=== PATIENT | male | born 1970 | race Caucasian/White ===

== ENCOUNTER 2020-03-17 13:49 | Inpatient (IN) | payer OTHER, SELFPAY ==
[2020-03-17] VITALS (21 sets, daily range): BP systolic 110–143; BP diastolic 62–85; PULSE 63–105; RESP 12–18; TEMP 35.9–36.6; O2SAT 94–100; BMI 23.5
[2020-03-17 14:44] LABS: Absolute Lymphocyte Count 1.78 X10^3/uL (0.83-4.51); Absolute Neutrophil Count 3.6 X10^3/uL (2.0-7.7); Basophil# 0.07 X10^3/uL; Basophil% 1.2 % (0-1); Eosinophil# 0.04 X10^3/uL; Eosinophils% 0.7 % (0-5); Lymphocyte # 1.78 X10^3/ul (4.0); Lymphocyte % 29.4 % (19-41); Mean Corp Hgb Conc 26.7 g/dL (32-36); Mean Corpuscular Hgb 15.5 pg (27.0-32.0); Mean Corpuscular Volume 58.1 fL (80-94); Mean Platelet Vol. 8.1 fl (6.2-12.0); Monocyte# 0.58 X10^3/uL; Monocyte% 9.6 % (0-10); NRBC Flagged by Analyzer 0.7 % (0-5); Neutrophil # 3.57 X10^3/uL (2.7-7.7); Neutrophil % 58.9 % (47-70); POSITIVE COUNT YES; Platelet Count 534 K/mm3 (150-450); RBC Distribution Width CV 16.6 % (11.6-14.6); RBC Distribution Width SD 34.4 fl (35.1-43.9); Red Blood Count 2.58 M/mm3 (4.6-6.2); White Blood Count 6.1 K/mm3 (4.4-11.0)
[2020-03-17 14:47] LABS: Differential Indicated SCAN CRITERIA MET
[2020-03-17 14:55] LABS: Anion Gap 7 (5-15); BUN 16 mg/dL (7-18); BUN/Creat Ratio 15.5 RATIO (10-20); Calcium,Total 8.6 mg/dL (8.5-10.1); Chloride 107 mmol/L (98-107); Creatinine, Serum 1.03 mg/dL (0.70-1.30); EST Glomerular Filtration Rate 82 mL/min (>60); Est Glom Filt Rate - Afr Amer 99 mL/min (>60); Estimated Creatinine Clearance 84.85 ml/min; Glucose 89 mg/dL (74-106); Iron 6 ug/dL (65-175); Iron Binding Capacity,Total 549 ug/dL (250-450); PERCENT IRON SATURATION 1.1 % (15.0-55.0); Potassium 3.7 mmol/L (3.5-5.1); Sodium Level 140 mmol/L (136-145)
[2020-03-17 15:03] LABS: Partial Thromboplast Time 28.8 Seconds (24.1-36.2)
[2020-03-17 15:31] LABS: International Normalized Ratio 1.3; Prothrombin Time (Protime)PT. 15.8 SECONDS (11.7-14.9)
--- NOTE | 2020-03-17 15:32 | NURSING ---
DR MARTIN FOR DR SOTO
--- NOTE | 2020-03-17 15:47 | ED.VIS.GEN ---
History of Present Illness Chief Complaint: Abn Labs Narrative: Patient presenting for evaluation secondary to anemia. Patient reports that he has a history of hemorrhoids. He has had this for quite a long time, they are typically not painful but over the course of about the last month he reports that he has been having increased issues with bleeding. Patient states that every time he has a bowel movement his hemorrhoids or prolapse, he will have a large amount of blood in the toilet, he will manually reduce them and then go about his day. He states that he progressively has been getting more shortness of breath over the course of the last month. At the recommendation of his brother who is a physician he got outpatient labs that showed that he had a hemoglobin of 4 and low iron and he was recommended to come to the emergency department. Patient denies that he has been having any sort of fevers chills night sweats or unintended weight loss. Patient denies that he has any rectal pain or abdominal pain associated with this. Review of systems otherwise negative. Past Medical History - Allergies and Home Meds Allergies/Adverse Reactions: Allergies No Known Allergies Allergy (Verified 03/17/20 14:22) Primary Care Physician: Care Physician,No Primary [Primary Care Provider] - Past Medical History: None Smoking Status: Never smoker Alcohol: None Drugs: None Review of Systems All systems negative except as indicated General: Denies: Chills, Fever, Sweats Eyes: Denies: Visual changes - bilaterally, Diplopia ENT: Denies: Rhinorrhea, Sore throat Cardiovascular: Denies: Chest pain, Palpitations Respiratory: Reports: Dyspnea Gastrointestinal: Reports: Hematochezia Genitourinary: Denies: Dysuria, Hematuria, Frequency Musculoskeletal: Denies: Back pain, Extremity Pain Skin: Denies: Rash, Wounds Neurological: Denies: Headache, Weakness, Numbness Physical Exam Vital Signs/Narrative: Vital Signs Temp Pulse Resp BP Pulse Ox 03/17/20 13:50 96.7 F L 77 16 143/85 H 100 Inital Vital Signs reviewed: Yes General: Well nourished, Well developed, No Acute Distress Head: Normocephalic, Atraumatic Eyes: Perrl, EOMI, Pale conjunctiva ENT: Moist mucous membranes, No rhinorrhea Neck: Supple, Nontender Cardiovascular: Regular rate, Regular rhythm, No murmurs Respiratory: No distress, CTA bilaterally, Chest nontender Abdomen: Soft, Nontender, Nondistended, Normal bowel sounds Rectal: - - Rectal exam shows multiple nonthrombosed hemorrhoids with trace blood on digital exam, these are nontender. Back: Nontender, Normal Inspection Extremities: Nontender, No edema Skin: No rash, Pallor Neurological: Alert, Oriented x3, Cranial nerves II-XII grossly intact, Normal Strength, Normal Sensation Psychological: Normal affect, Normal Mood Diagnostic/Tx/Re-eval - Medical Decision Making Patient presented secondary to anemia. Physical exam he does appear anemic, this was confirmed via a CBC. Patient was typed and crossmatched for 2 units of packed red blood cells. Patient has only trace blood currently, is normotensive and not tachycardic. He does not appear critically ill and likely got to a hemoglobin of 4 slowly over a period of time. I discussed patient's case with general surgery who does agree to see the patient in consult for a colonoscopy which likely will be required to assess the source of his bleeding as this could either be from hemorrhoids, malignancy, or other etiology. I discussed this with hospitalist who would like to place the patient in intensive care due to the profoundly low hemoglobin of 4.0. Patient will be admitted for further treatment. - Critical Care Time Critical care time (excluding procedures): 30-74 minutes ED Disposition - Plan for ED Patient: Disposition: Acute Care Hospital [facility] Diagnosis: Anemia, Lower GI bleed Referrals: Care Physician,No Primary [Primary Care Provider] -
--- NOTE | 2020-03-17 15:48 | NURSING ---
ICU PAINTSIL GI BLEED
--- NOTE | 2020-03-17 16:10 | PCM.HP.STD ---
<Jessenia Davila [employer] - Last Filed: 03/17/20 16:20> Problem List (1) Anemia Status: Acute (2) Lower GI bleed Status: Acute History of Present Illness Date of Admission: 03/17/20 Chief Complaint: Shortness of breath, lightheadedness. The patient is a 49 year old M who presents to emergency room due to shortness of breath, lightheadedness and rectal bleeding. Patient states he has had hemorrhoids forever. He states his previously he had periods of time where he would have rectal bleeding which would then resolve on their own. Over the past few months he states he has had ongoing bleeding from his hemorrhoids. He states during a bowel movement he has squirting of blood. He has not seen a doctor for this or had prior colonoscopy. Over the past few weeks he reports shortness of breath and lightheadedness as well as easily fatigued. He called his brother who is a physician currently practicing in [facility] who told him to get lab work. Patient went to a laboratory to have his blood work completed and when he shared results with his brother, his brother told him to go to the emergency room immediately. He denies chest pain, denies syncope. He has a past medical history of hepatitis B which he states has resolved. Past Medical History Allergies No Known Allergies Allergy (Verified 03/17/20 14:22) Home Medications: Ambulatory Orders Medication Instructions Recorded Acetaminophen [Tylenol Extra 1,000 mg PO DAILY PRN 03/17/20 Strength] Naproxen Sodium 440 mg PO DAILY PRN 03/17/20 Surgical History: no surgical history Psychiatric History: No pertinent psych hx Lives: Spouse/ Significant Other Smoking Status: Never smoker Alcohol: Rare Drugs: None - *Family History Maternal History Items: - - Denies known maternal medical history including cardiac history Paternal History Items: Hypertension, Stroke - Brain aneurysm Review of Systems Constitutional: Reports: Fatigue. Denies: Chills, Fever, Weight Change HEENT: Denies: Head Aches, Sinus Congestion, Sinus Drainage Cardiovascular: Reports: Light Headedness. Denies: Chest Pain, Chest Pressure, Palpitations, Syncope Respiratory: Reports: Shortness of breath upon exertion. Denies: Cough, Sputum production, Wheezing Gastrointestinal: Reports: - - Rectal bleeding. Denies: Abdominal Pain, Nausea, Vomiting Genitourinary: Denies: Dysuria Musculoskeletal: Denies: Joint Pain, Joint Tenderness Skin: Denies: Rash, Wounds Neurological: Denies: Numbness, Tingling, Focal weakness Psychiatric: Denies: Anxiety, Depression, Homicidal Ideations, Suicidal Ideations Hematologic/ Lymphatic: Denies: Easy Bruising, Easy Bleeding VTE Information - Inpt Only VTE Present on Admission: No VTE Mechan Device Prophylaxis: None VTE Pharm Prophylaxis ordered?: No Reason prophylaxis not ordered:: Medical Contraindication Patient Problems: Active and Suspected Problems Anemia (Acute) Lower GI bleed (Acute) - Physical Exam Vitals/I&O's: Vital Signs Temp Pulse Resp BP Pulse Ox 97.9 F 77 14 125/72 H 100 03/17/20 15:56 03/17/20 15:56 03/17/20 15:56 03/17/20 15:56 03/17/20 15:56 Oxygen Delivery Method Room Air Weight: 154 lb 12.232 oz Body Mass Index (BMI) 23.5 Intake and Output for Last 24 Hours 03/15/20 03/16/20 03/17/20 23:59 23:59 23:59 Intake Total 0 / 0 Balance 0 / 0 General: Alert, Oriented x3, Cooperative, - - Very pale appearing HEENT: Atraumatic, PERRLA, EOMI, Normocephalic Neck: Supple, No JVD, Negative Carotid Bruits Lungs: Clear to auscultation, Normal air movement Cardiovascular: Regular rate, No murmurs Abdomen: Bowel Sounds Present, Soft, Non Tender, Non-Distended Extremities: No clubbing, No cyanosis, No edema, Capillary Refill Less than 3 Seconds Skin: No rashes, No breakdown Musculoskeletal: No Tenderness to Palpation of Joints or Extremities Neurological: Cranial nerves II-XII grossly intact, Neuro grossly intact Psych/Mental Status: Normal Affect, Appropriate Laboratory Results 03/17/20 14:30: WBC 6.1, RBC 2.58 L, Hgb 4.0 L*, Hct 15.0 L, MCV 58.1 L, MCH 15.5 L, MCHC 26.7 L, RDW Std Deviation 34.4 L, RDW Coeff of Laisha 16.6 H, Plt Count 534 H, MPV 8.1, Immature Gran % (Auto) 0.200, Neut % (Auto) 58.9, Lymph % (Auto) 29.4, [place] % (Auto) 9.6, Eos % (Auto) 0.7, Baso % (Auto) 1.2 H, Absolute Neuts (auto) 3.6, Absolute Lymphs (auto) 1.78, Nucleated RBC % 0.7, Diff Path Review August03/17/20 14:30: PT 15.8 H, INR 1.3, APTT 28.8 03/17/20 14:30: Sodium 140, Potassium 3.7, Chloride 107, Carbon Dioxide 26.0, Anion Gap 7, BUN 16, Creatinine 1.03, Estim Creat Clear Calc 84.85, Est GFR (MDRD) Af Amer 99, Est GFR (MDRD) Non-Af 82, BUN/Creatinine Ratio 15.5, Glucose 89, Calcium 8.6, Iron 6 L, TIBC 549 H, Iron Saturation 1.1 L 03/17/20 14:30: Blood Type A NEGATIVE, Antibody Screen NEGATIVE, Crossmatch See Detail Assessment/Plan All Active Problems Anemia (Acute) Lower GI bleed (Acute) 1. Acute severe symptomatic anemia, lower GI bleed-secondary to acute on chronic hemorrhoidal bleeding. Dr. Ricks, general surgery consulted. NPO. 2 units PRBC ordered in ER, serial H&H. PPI. 2. History of hepatitis B-patient reports this was followed as outpatient and resolved. DVT prophylaxis-pharmacologic prophylaxis contraindicated This patient was seen by DRAKE Pham under the supervision of Dr. Briceno. <Tsering Briceno - Last Filed: 03/17/20 16:49> History of Present Illness The patient is a 49 year old M [] Past Medical History Allergies No Known Allergies Allergy (Verified 03/17/20 14:22) - Physical Exam Vitals/I&O's: Vital Signs Temp Pulse Resp BP Pulse Ox 97.9 F 75 12 137/76 H 100 03/17/20 16:21 03/17/20 16:21 03/17/20 16:21 03/17/20 16:21 03/17/20 16:21 Oxygen Delivery Method Room Air Weight: 70.2 kg Body Mass Index (BMI) 23.5 Intake and Output for Last 24 Hours 03/15/20 03/16/20 03/17/20 23:59 23:59 23:59 Intake Total 0 / 0 Balance 0 / 0 Laboratory Results 03/17/20 14:30: WBC 6.1, RBC 2.58 L, Hgb 4.0 L*, Hct 15.0 L, MCV 58.1 L, MCH 15.5 L, MCHC 26.7 L, RDW Std Deviation 34.4 L, RDW Coeff of Laisha 16.6 H, Plt Count 534 H, MPV 8.1, Immature Gran % (Auto) 0.200, Neut % (Auto) 58.9, Lymph % (Auto) 29.4, [place] % (Auto) 9.6, Eos % (Auto) 0.7, Baso % (Auto) 1.2 H, Absolute Neuts (auto) 3.6, Absolute Lymphs (auto) 1.78, Nucleated RBC % 0.7, Diff Path Review August03/17/20 14:30: PT 15.8 H, INR 1.3, APTT 28.8 03/17/20 14:30: Sodium 140, Potassium 3.7, Chloride 107, Carbon Dioxide 26.0, Anion Gap 7, BUN 16, Creatinine 1.03, Estim Creat Clear Calc 84.85, Est GFR (MDRD) Af Amer 99, Est GFR (MDRD) Non-Af 82, BUN/Creatinine Ratio 15.5, Glucose 89, Calcium 8.6, Iron 6 L, TIBC 549 H, Iron Saturation 1.1 L 03/17/20 14:30: Blood Type A NEGATIVE, Antibody Screen NEGATIVE, Crossmatch See Detail Assessment/Plan This patient was seen in conjunction with Jessenia Davila NP. I have independently interviewed and examined the patient and reviewed pertinent historical, laboratory, and other data. Please refer to her note for patient's presentation, findings, and recommendations. 49-year-old male with past medical history of hemorrhoids who has been having rectal bleeding for months, never had a colonoscopy comes in with dizziness, palpitations, lightheadedness and presyncopal symptoms. He got outpatient lab which showed hemoglobin of 4. He was directed to come to emergency department. At the time of being seen, he denied any chest pain or shortness of breath. He was currently pain transfused. Rectal exam diameter emergency room doctor showed streaks of blood, prolapsed hemorrhoid. Vitals are stable. Physical Exam: Gen: Comfortable, very pale, not jaundiced, alert oriented x3 CVS:HS I +II, regular, no murmurs RESP: CTA GI: BS present and normal, nontender, no palpable organs, rectal exam was deferred because it was previously done by ED doctor. EXT:No edema Labs reviewed: ASSESSMENT: 1. Acute severe chronic blood loss anemia 2. Acute GI bleed, likely secondary to acute bleeding hemorrhoids 3. History of Hep B 4. DVT PPx-SCDs 5. Code status - Full code Meds reviewed Plan: Admit to ICU Transfuse 2 units of pRBCs IV PPI BID HH Q6h I discussed and explained in details the various types of CODE STATUS-full code, DNR CCA, DNR CC. Patient opted for full code. Time spent discussing CODE STATUS 16 minutes Inpatient E&M: 62823 Init Hosp L3 Procedures: 43423 Advncd Care Plan 30 Min
--- NOTE | 2020-03-17 16:19 | NURSING ---
ICU 5
[2020-03-17] MEDS: Furosemide 20 MG/2 ML VIAL IV (19:35)
[2020-03-17] MEDS: 0.9% Saline Lock 10 ML Syringe IV ×2 (19:35→23:30)
[2020-03-17 19:41] LABS: AST(SGOT) 12 U/L (15-37); Alanine Aminotransfer ALT/SGPT 19 U/L (16-61); Albumin, Serum 4.3 g/dL (3.2-5.0); Alkaline Phosphatase 55 U/L (45-117); Bilirubin, Direct 0.11 mg/dL (0.00-0.30); Globulin 3.5 g/dL (2.2-4.2); Protein, Total 7.8 g/dL (6.4-8.2)
[2020-03-17 22:26] LABS: Hematocrit 20.6 % (40-54); POSITIVE COUNT YES
[2020-03-17 22:30] LABS: Hemoglobin 5.9 g/dL (13.0-16.5)
[2020-03-18] VITALS (28 sets, daily range): BP systolic 94–133; BP diastolic 55–88; PULSE 49–88; RESP 12–18; TEMP 36.3–37.1; O2SAT 95–100
[2020-03-18] MEDS: 0.9% Saline Lock 10 ML Syringe IV (06:01)
[2020-03-18 06:09] LABS: Absolute Lymphocyte Count 1.82 X10^3/uL (0.83-4.51); Absolute Neutrophil Count 3.4 X10^3/uL (2.0-7.7); Basophil# 0.06 X10^3/uL; Eosinophil# 0.13 X10^3/uL; Eosinophils% 2.1 % (0-5); Hemoglobin 7.4 g/dL (13.0-16.5); Lymphocyte # 1.82 X10^3/ul (4.0); Lymphocyte % 29.5 % (19-41); Mean Corp Hgb Conc 30.8 g/dL (32-36); Mean Corpuscular Hgb 20.8 pg (27.0-32.0); Mean Corpuscular Volume 67.4 fL (80-94); Mean Platelet Vol. 8.3 fl (6.2-12.0); Monocyte# 0.76 X10^3/uL; Monocyte% 12.3 % (0-10); NRBC Flagged by Analyzer 0.6 % (0-5); Neutrophil # 3.38 X10^3/uL (2.7-7.7); Neutrophil % 54.8 % (47-70); POSITIVE MORPHOLOGY YES; Platelet Count 456 K/mm3 (150-450); RBC Distribution Width CV 26.5 % (11.6-14.6); RBC Distribution Width SD 59.1 fl (35.1-43.9); Red Blood Count 3.56 M/mm3 (4.6-6.2); White Blood Count 6.2 K/mm3 (4.4-11.0)
[2020-03-18 06:13] LABS: Differential Indicated SCAN CRITERIA MET
[2020-03-18 06:24] LABS: Differential Comment SCANNED
[2020-03-18 06:25] LABS: Anisocytosis 1+; Hypochromasia 2+; Microcytosis 1+; Tear Drop Cell RARE
[2020-03-18 06:26] LABS: Ovalocyte RARE
[2020-03-18 06:29] LABS: ALB/GLOB Ratio 1.1 RATIO (0.9-2.4); AST(SGOT) 12 U/L (15-37); Alanine Aminotransfer ALT/SGPT 19 U/L (16-61); Albumin, Serum 3.7 g/dL (3.2-5.0); Alkaline Phosphatase 51 U/L (45-117); Anion Gap 5 (5-15); BUN 16 mg/dL (7-18); BUN/Creat Ratio 14.5 RATIO (10-20); Calcium,Total 8.5 mg/dL (8.5-10.1); Chloride 107 mmol/L (98-107); EST Glomerular Filtration Rate 76 mL/min (>60); Est Glom Filt Rate - Afr Amer 92 mL/min (>60); Estimated Creatinine Clearance 79.45 ml/min; Globulin 3.3 g/dL (2.2-4.2); Glucose 83 mg/dL (74-106); Potassium 3.9 mmol/L (3.5-5.1); Sodium Level 138 mmol/L (136-145)
--- NOTE | 2020-03-18 08:18 | CON.PCM_ITS ---
Problem List (1) Hemorrhoids with complication Status: Acute (2) Iron deficiency anemia due to chronic blood loss Status: Chronic (3) Lower GI bleed Status: Acute Reason for Consult Date of Consultation: 03/18/20 Reason for Consultation: GI bleed History of Present Illness: The patient is a 49 year old M, with past medical history listed below, who presented to [facility] on 03/17/2020 secondary to weakness. Patient reportedly has a history of hemorrhoids and has had increased bleeding over the last 2 to 3 months. Patient states that when he had a bowel movement he could hear a large amount of blood hitting the toilet bowl. Patient reportedly would manually reduce them and go on with his day. Patient became progressively weak and had an outpatient labs showing a hemoglobin of 4, so was brought to the emergency department for evaluation. Patient was not reporting any concomitant symptoms such as fever, chills, night sweats or unintentional weight loss. Patient is not having any rectal pain, abdominal pain, nausea or vomiting. Patient is not reporting any respiratory symptoms or chest pain. On arrival to the ER, patient was noted to be normotensive at 143/85 and saturating well on room air. Patient was very pale in appearance. Rectal exam did show multiple nonthrombosed hemorrhoids. Patient was typed and crossed 2 units and transfused. Patient was placed in the intensive care unit for monitoring. Surgery was reportedly contacted by the ER. Since being in the intensive care unit, patient has received an additional 2 units of packed red blood cells to reach a total of 4 units of packed red blood cells. Patient has not been hemodynamically unstable. Patient is not reporting any abdominal pain, nausea or vomiting. No new symptoms have been reported. Patient reports only intermittent alcohol use with no tobacco or drug use. Patient denies any environmental exposures. Patient does report that he does not have a primary care physician. Review of systems otherwise negative from a constitutional, HEENT, respiratory, cardiovascular, GI, genitourinary, musculoskeletal, skin, neurologic, psychiatric and hematologic system unless stated above. Past Medical History Past Medical History (Chronic Problems): Chronic Problems Iron deficiency anemia due to chronic blood loss (Chronic) Allergies No Known Allergies Allergy (Verified 03/17/20 14:22) Home Medications: Ambulatory Orders Medication Instructions Recorded Acetaminophen [Tylenol Extra 1,000 mg PO DAILY PRN 03/17/20 Strength] Naproxen Sodium 440 mg PO DAILY PRN 03/17/20 Surgical History: no surgical history Psychiatric History: No pertinent psych hx Lives: Spouse/ Significant Other Smoking Status: Never smoker Tobacco Use: Non-smoker Alcohol: Rare Drugs: None - *Family History Maternal History Items: - - Denies known maternal medical history including cardiac history Paternal History Items: Hypertension, Stroke - Brain aneurysm Review of Systems Comment: See HPI Patient Problems: Active and Suspected Problems Anemia (Acute) Lower GI bleed (Acute) - Physical Exam Vitals/I&O's: Vital Signs Temp Pulse Resp BP Pulse Ox 36.4 C L 64 16 122/72 H 100 03/18/20 07:00 03/18/20 08:00 03/18/20 08:00 03/18/20 08:00 03/18/20 08:00 Oxygen Delivery Method Room Air Weight: 71.4 kg Body Mass Index (BMI) 23.5 Intake and Output for Last 24 Hours 03/16/20 03/17/20 03/18/20 23:59 23:59 23:59 Intake Total 170.25 / 170.25 90 / 90 Output Total 2200 / 2200 250 / 250 Balance -2029.75 / -2029.75 -160 / -160 General: Alert, Oriented x3, Cooperative, No apparent distress, Well developed, Well nourished, - - Speaking in full sentences. HEENT: Atraumatic, PERRLA, EOMI, Normocephalic, - - No scleral icterus or injection noted Oral: Moist Mucosa, No Gingival or Mucosal Lesions/ Ulcerations Neck: Supple, No JVD, No Nodes, Trachea Midline Lungs: Clear to auscultation, Normal air movement, No rhonchi, No wheeze, No rales Cardiovascular: Regular rate, Regular Rhythm, Normal S1, Normal S2, No murmurs, No rub noted, No Gallop Abdomen: Bowel Sounds Present, Soft, Non Tender, Non-Distended Extremities: No clubbing, No cyanosis, No edema Skin: No rashes, No breakdown Musculoskeletal: No Tenderness to Palpation of Joints or Extremities Lymphatic: No Cervical, Supraclavicular, or Inguinal Adenopathy Neurological: Cranial nerves II-XII grossly intact, Neuro grossly intact, Motor Exam 5/5 strength throughout Psych/Mental Status: Alert and oriented to time, place, person, mood and affect Microbiology Past 72 Hours 03/17/20 19:20 Mucosa - Nose SARS-CoV-2 Antigen (Rapid) - Final Laboratory Results 03/17/20 14:30: WBC 6.1, RBC 2.58 L, Hgb 4.0 L*, Hct 15.0 L, MCV 58.1 L, MCH 15.5 L, MCHC 26.7 L, RDW Std Deviation 34.4 L, RDW Coeff of Laisha 16.6 H, Plt Count 534 H, MPV 8.1, Immature Gran % (Auto) 0.200, Neut % (Auto) 58.9, Lymph % (Auto) 29.4, [place] % (Auto) 9.6, Eos % (Auto) 0.7, Baso % (Auto) 1.2 H, Absolute Neuts (auto) 3.6, Absolute Lymphs (auto) 1.78, Nucleated RBC % 0.7, Diff Path Review August03/17/20 14:30: PT 15.8 H, INR 1.3, APTT 28.8 03/17/20 14:30: Sodium 140, Potassium 3.7, Chloride 107, Carbon Dioxide 26.0, Anion Gap 7, BUN 16, Creatinine 1.03, Estim Creat Clear Calc 84.85, Est GFR (MDRD) Af Amer 99, Est GFR (MDRD) Non-Af 82, BUN/Creatinine Ratio 15.5, Glucose 89, Calcium 8.6, Iron 6 L, TIBC 549 H, Iron Saturation 1.1 L 03/17/20 14:30: Blood Type A NEGATIVE, Antibody Screen NEGATIVE, Crossmatch See Detail 03/17/20 14:30: Total Bilirubin 0.40, Direct Bilirubin 0.11, AST 12 L, ALT 19, Alkaline Phosphatase 55, Total Protein 7.8, Albumin 4.3, Globulin 3.5 03/17/20 14:30: Crossmatch See Detail 03/17/20 22:17: Hgb 5.9 L*, Hct 20.6 L 03/18/20 05:58: WBC 6.2, RBC 3.56 L, Hgb 7.4 L, Hct 24.0 L, MCV 67.4 L D, MCH 20.8 L, MCHC 30.8 L D, RDW Std Deviation 59.1 H, RDW Coeff of Laisha 26.5 H, Plt Count 456 H, MPV 8.3, Immature Gran % (Auto) 0.300, Neut % (Auto) 54.8, Lymph % (Auto) 29.5, [place] % (Auto) 12.3 H, Eos % (Auto) 2.1, Baso % (Auto) 1.0, Absolute Neuts (auto) 3.4, Absolute Lymphs (auto) 1.82, Nucleated RBC % 0.6, Differential Comment SCANNED, Hypochromasia 2+, Anisocytosis 1+, Microcytosis 1+, Tear Drop Cells RARE, Ovalocytes RARE 03/18/20 05:58: Sodium 138, Potassium 3.9, Chloride 107, Carbon Dioxide 26.0, Anion Gap 5, BUN 16, Creatinine 1.10, Estim Creat Clear Calc 79.45, Est GFR (MDRD) Af Amer 92, Est GFR (MDRD) Non-Af 76, BUN/Creatinine Ratio 14.5, Glucose 83, Calcium 8.5, Total Bilirubin 1.50 H, AST 12 L, ALT 19, Alkaline Phosphatase 51, Total Protein 7.0, Albumin 3.7, Globulin 3.3, Albumin/Globulin Ratio 1.1 Current Medications Acetaminophen (Acetaminophen 325 Mg Tablet) 650 mg PO Q6H PRN PRN PRN Reason: Pain Score 1-10/Temp > 100.7 F Pantoprazole Sodium 40 mg/ (Sodium Chloride) 110 mls @ 330 mls/hr IV Q12 LUZ ELENA Last Infusion: 03/17/20 21:49 Dose: Infused Documented by: Sodium Chloride () 250 mls @ 15 mls/hr IV .[id number] PRN PRN Reason: Saline Flush Last Infusion: 03/17/20 21:22 Dose: 0 mls/hr Documented by: Sodium Chloride () 250 mls @ 15 mls/hr IV .[id number] PRN PRN Reason: Additional IVPB Infusion Ondansetron HCl (Ondansetron 4 Mg/2 Ml Vial) 4 mg IV Q8H PRN PRN PRN Reason: NAUSEA/VOMITING Polyethylene Glycol (Polyethylene Glycol 3350 17 Gm Packet) 17 gm PO DAILY LUZ ELENA Sodium Chloride (0.9% Saline Lock 10 Ml Syringe) 10 - 40 ml IV UD PRN PRN Reason: SALINE FLUSH Last Admin: 03/18/20 06:01 Dose: 10 ml Documented by: Assessment/Plan Active and Suspected Problems Anemia (Acute) Lower GI bleed (Acute) RECOMMENDATIONS: 1. Await surgical recommendations 2. Initiate bowel regimen 3. No transfusion of blood 4. Consider iron infusion 5. Okay to leave the intensive care unit from my perspective IMPRESSIONS: 1. Acute on chronic blood loss anemia secondary to bleeding hemorrhoids Surgery has been consulted. Patient has responded well to transfusions. Likely not necessary to transfuse up to a hemoglobin of 9 as bleeding should be readily noticeable from the rectal position. Patient does have significant iron deficiency with a saturation of just over 1%. Patient may benefit from iron infusion. Patient will be placed on a laxative to limit potential tearing and complication of continued bleeding. No indication for pressors or IV fluids from my perspective. 2. Iron deficiency anemia secondary to acute blood loss/internal hemorrhoids/lack of primary care Complicates care, management, recovery and prognosis. Patient will need p.o. supplementation, but may benefit from an iron infusion to help stabilize condition. Will discuss with case management about initiation of referral for primary care. Inpatient E&M: 47817 Init Hosp L2
--- NOTE | 2020-03-18 09:18 | PCM.CONS.GEN ---
Problem List (1) Anemia Status: Acute (2) Lower GI bleed Status: Acute (3) Hemorrhoids with complication Status: Acute Reason for Consult Date of Consultation: 03/18/20 Reason for Consultation: Acute lower GI bleed. Acute Anemia. History of Present Illness: The patient is a 49 year old M who presented following lab results of Hgb of 4. Patient states he has a long time history of hemorrhoids. He notes within the last 2 months he has had increased rectal bleeding with bowel movements. Patient states within the last 3-4 weeks he has noted increased fatigue. He started working out again after stopping for awhile thinking this may help. He continued to notice easy fatigue. Patient states 2 weeks ago he had noticed increased shortness of breath. He also noted his heart would beat faster than normal. His tongue and gums were pale. He contacted his brother who is a physician in [facility] who recommended the patient obtain lab work. His lab work returned and patients brother had recommended the patient to the ED. Patient has a history of constipation also. He noted recently changing his diet to include more iron. He noted diet change increased loose stools. He stated the last 2 days however have been constipation. He notes the last episode of bleeding was 3-4 days ago. He denies previous colonoscopy or EGD. He denies family history of colon cancer. Upon admission, Hgb was 4.0. He has received 4 units of PRBC. Hgb today is 7.4. He has not had any further bleeding. Past Medical History Past Medical History (Chronic Problems): Chronic Problems Iron deficiency anemia due to chronic blood loss (Chronic) Allergies No Known Allergies Allergy (Verified 03/17/20 14:22) Home Medications: Ambulatory Orders Medication Instructions Recorded Acetaminophen [Tylenol Extra 1,000 mg PO DAILY PRN 03/17/20 Strength] Naproxen Sodium 440 mg PO DAILY PRN 03/17/20 Surgical History: no surgical history Psychiatric History: No pertinent psych hx Lives: Spouse/ Significant Other Smoking Status: Never smoker Tobacco Use: Non-smoker Alcohol: Rare Drugs: None - *Family History Maternal History Items: - - Denies known maternal medical history including cardiac history Paternal History Items: Hypertension, Stroke - Brain aneurysm Review of Systems Constitutional: Reports: Fatigue HEENT: Denies: Head Aches, Sinus Congestion, Sinus Drainage Cardiovascular: Reports: Palpitations. Denies: Chest Pain Respiratory: Reports: Shortness of Breath Gastrointestinal: Reports: Constipation, Hematochezia. Denies: Abdominal Pain Genitourinary: Denies: Dysuria Musculoskeletal: Denies: Joint Pain, Joint Tenderness Skin: Denies: Rash, Wounds Neurological: Denies: Numbness, Tingling, Focal weakness Psychiatric: Denies: Anxiety, Depression, Homicidal Ideations, Suicidal Ideations Hematologic/ Lymphatic: Reports: Anemia Patient Problems: Active and Suspected Problems Anemia (Acute) Lower GI bleed (Acute) Hemorrhoids with complication (Acute) - Physical Exam Vitals/I&O's: Vital Signs Temp Pulse Resp BP Pulse Ox 97.6 F L 58 L 14 113/72 99 03/18/20 07:00 03/18/20 09:16 03/18/20 09:00 03/18/20 09:00 03/18/20 09:00 Oxygen Delivery Method Room Air Weight: 157 lb 6.561 oz Body Mass Index (BMI) 23.5 Intake and Output for Last 24 Hours 03/16/20 03/17/20 03/18/20 23:59 23:59 23:59 Intake Total 170.25 / 170.25 90 / 90 Output Total 2200 / 2200 250 / 250 Balance -2029.75 / -2029.75 -160 / -160 General: Alert, Oriented x3, Cooperative HEENT: Atraumatic, PERRLA, EOMI, Normocephalic Neck: Supple, No JVD, Negative Carotid Bruits Lungs: Clear to auscultation, Normal air movement Cardiovascular: Regular rate, No murmurs Abdomen: Bowel Sounds Present, Soft, Non Tender, - - Prolapsing internal hemorrhoids noted. No active bleeding noted. Extremities: No edema, Capillary Refill Less than 3 Seconds Skin: No rashes, No breakdown Musculoskeletal: No Tenderness to Palpation of Joints or Extremities Neurological: Neuro grossly intact Psych/Mental Status: Normal Affect, Appropriate Microbiology Past 72 Hours 03/17/20 19:20 Mucosa - Nose SARS-CoV-2 Antigen (Rapid) - Final Laboratory Results 03/17/20 14:30: WBC 6.1, RBC 2.58 L, Hgb 4.0 L*, Hct 15.0 L, MCV 58.1 L, MCH 15.5 L, MCHC 26.7 L, RDW Std Deviation 34.4 L, RDW Coeff of Laisha 16.6 H, Plt Count 534 H, MPV 8.1, Immature Gran % (Auto) 0.200, Neut % (Auto) 58.9, Lymph % (Auto) 29.4, [place] % (Auto) 9.6, Eos % (Auto) 0.7, Baso % (Auto) 1.2 H, Absolute Neuts (auto) 3.6, Absolute Lymphs (auto) 1.78, Nucleated RBC % 0.7, Diff Path Review August03/17/20 14:30: PT 15.8 H, INR 1.3, APTT 28.8 03/17/20 14:30: Sodium 140, Potassium 3.7, Chloride 107, Carbon Dioxide 26.0, Anion Gap 7, BUN 16, Creatinine 1.03, Estim Creat Clear Calc 84.85, Est GFR (MDRD) Af Amer 99, Est GFR (MDRD) Non-Af 82, BUN/Creatinine Ratio 15.5, Glucose 89, Calcium 8.6, Iron 6 L, TIBC 549 H, Iron Saturation 1.1 L 03/17/20 14:30: Blood Type A NEGATIVE, Antibody Screen NEGATIVE, Crossmatch See Detail 03/17/20 14:30: Total Bilirubin 0.40, Direct Bilirubin 0.11, AST 12 L, ALT 19, Alkaline Phosphatase 55, Total Protein 7.8, Albumin 4.3, Globulin 3.5 03/17/20 14:30: Crossmatch See Detail 03/17/20 22:17: Hgb 5.9 L*, Hct 20.6 L 03/18/20 05:58: WBC 6.2, RBC 3.56 L, Hgb 7.4 L, Hct 24.0 L, MCV 67.4 L D, MCH 20.8 L, MCHC 30.8 L D, RDW Std Deviation 59.1 H, RDW Coeff of Laisha 26.5 H, Plt Count 456 H, MPV 8.3, Immature Gran % (Auto) 0.300, Neut % (Auto) 54.8, Lymph % (Auto) 29.5, [place] % (Auto) 12.3 H, Eos % (Auto) 2.1, Baso % (Auto) 1.0, Absolute Neuts (auto) 3.4, Absolute Lymphs (auto) 1.82, Nucleated RBC % 0.6, Differential Comment SCANNED, Hypochromasia 2+, Anisocytosis 1+, Microcytosis 1+, Tear Drop Cells RARE, Ovalocytes RARE 03/18/20 05:58: Sodium 138, Potassium 3.9, Chloride 107, Carbon Dioxide 26.0, Anion Gap 5, BUN 16, Creatinine 1.10, Estim Creat Clear Calc 79.45, Est GFR (MDRD) Af Amer 92, Est GFR (MDRD) Non-Af 76, BUN/Creatinine Ratio 14.5, Glucose 83, Calcium 8.5, Total Bilirubin 1.50 H, AST 12 L, ALT 19, Alkaline Phosphatase 51, Total Protein 7.0, Albumin 3.7, Globulin 3.3, Albumin/Globulin Ratio 1.1 Current Medications Acetaminophen (Acetaminophen 325 Mg Tablet) 650 mg PO Q6H PRN PRN PRN Reason: Pain Score 1-10/Temp > 100.7 F Pantoprazole Sodium 40 mg/ (Sodium Chloride) 110 mls @ 330 mls/hr IV Q12 LUZ ELENA Last Infusion: 03/17/20 21:49 Dose: Infused Documented by: Sodium Chloride () 250 mls @ 15 mls/hr IV .[id number] PRN PRN Reason: Saline Flush Last Infusion: 03/17/20 21:22 Dose: 0 mls/hr Documented by: Sodium Chloride () 250 mls @ 15 mls/hr IV .[id number] PRN PRN Reason: Additional IVPB Infusion Ondansetron HCl (Ondansetron 4 Mg/2 Ml Vial) 4 mg IV Q8H PRN PRN PRN Reason: NAUSEA/VOMITING Polyethylene Glycol (Polyethylene Glycol 3350 17 Gm Packet) 17 gm PO DAILY LUZ ELENA Sodium Chloride (0.9% Saline Lock 10 Ml Syringe) 10 - 40 ml IV UD PRN PRN Reason: SALINE FLUSH Last Admin: 03/18/20 06:01 Dose: 10 ml Documented by: Assessment/Plan All Active Problems Anemia (Acute) Lower GI bleed (Acute) Hemorrhoids with complication (Acute) I have been consulted in conjunction with Dr. Ricks. Impression: Acute anemia. Lower GI bleed. Plan: I have discussed this patient with Dr. iRcks. Dr. Ricks will plan to perform an upper and lower endoscopy. Procedure details, risks and benefits have been explained. Patient has had the opportunity to ask and have questions answered. Patient verbally understands and agrees with the plan. Patient will be COVID tested prior to procedure. We will plan to proceed with the procedure tomorrow. Bowel prep has been explained to the patient. Discussed with patient performing hemorrhoidal surgery is typically non-emergent surgery with that being said a hemorrhoidectomy will more than likely be performed as an outpatient at patients choice of timing. Thank you for allowing us to participate in this patient's care. Office Visits / Consults: [id number] IP Consult L3
[2020-03-18] MEDS: Polyethylene Glycol 3350 17 GM PACKET PO (09:54)
--- NOTE | 2020-03-18 12:09 | NURSING ---
RN CM Assessment Introduced role of RN CM to patient.? Patient is alert, oriented and able?to participate in RN CM Assessment. ?Care providers, pharmacy, and demographics verified. Admit Dx: Severe Anemia, GIB Re-Admit: No Barriers/Issues: Patient states newly hired at [employer] and missed the insurance cut off so he is currently uninsured. This technical writer gave patient PCP list, information to [facility], and [facility] number- discussed checking into seeing if he qualifies and apply. PCP: None Specialists: None Preferred Pharmacy: [facility] Insurance: None Rx Benefit:?None ?LNOK: Spouse Sofiya Iyer LW/HPOA: None, patient declines completion at this time on admission. Aware can return as an outpatient to complete with social work department. Aware to notify staff if he changes his mind about completing during this admission. Living Arrangements:? Lives with spouse in a Duplex, 1 step to enter home. ADL?s: Independent with ambulation and ADL's Transportation: Both patient and spouse drive. Spouse will transport upon DC. DME: None HHC: None SNF: None Goal: Home and does not think will have any needs. Denies any issues or concerns with DC planning at this time. Aware RNCM will continue to follow for any emerging needs. DC PLAN: Home with no anticipated needs identified at this time. SULLY Oakes
[2020-03-18 13:39] LABS: Pathologist Review Reviewed
[2020-03-18] MEDS: Bisacodyl 5 MG Tablet 20 MG PO (14:53)
--- NOTE | 2020-03-18 15:06 | PCM.PN.HOSP ---
Patient Problems: Active and Suspected Problems Anemia (Acute) Lower GI bleed (Acute) Hemorrhoids with complication (Acute) Subjective: Feels better today after his transfusions. He presented with a hemoglobin of 4 and received 4 units PRBCs and his hemoglobin this morning was 7.4. Vitals/I&O's: Vital Signs Temp Pulse Resp BP Pulse Ox 97.4 F L 82 14 94/66 100 03/18/20 12:00 03/18/20 14:00 03/18/20 14:00 03/18/20 14:00 03/18/20 14:00 Oxygen Delivery Method Room Air Weight: 157 lb 6.561 oz Body Mass Index (BMI) 23.5 Intake and Output for Last 24 Hours 03/16/20 03/17/20 03/18/20 23:59 23:59 23:59 Intake Total 170.25 / 170.25 200 / 200 Output Total 2200 / 2200 575 / 575 Balance -2029.75 / -2029.75 -375 / -375 General: Alert, Oriented x3, Cooperative, No apparent distress, - - Pale HEENT: Atraumatic, PERRLA, EOMI, Normocephalic Oral: Moist Mucosa Neck: Supple, No JVD Lungs: Clear to auscultation, Normal air movement, No rhonchi, No wheeze, No rales Cardiovascular: Regular rate, Regular Rhythm, Normal S1, Normal S2, No murmurs Abdomen: Soft, Non Tender, Non-Distended, No Hepato-splenomegaly Extremities: No edema, Capillary Refill Less than 3 Seconds Skin: No rashes, No breakdown Neurological: Neuro grossly intact, Sensory exam intact to light touch and pain Psych/Mental Status: Normal Affect, Appropriate Microbiology Past 72 Hours 03/17/20 19:20 Mucosa - Nose SARS-CoV-2 Antigen (Rapid) - Final Laboratory Results 03/17/20 14:30: WBC 6.1, RBC 2.58 L, Hgb 4.0 L*, Hct 15.0 L, MCV 58.1 L, MCH 15.5 L, MCHC 26.7 L, RDW Std Deviation 34.4 L, RDW Coeff of Laisha 16.6 H, Plt Count 534 H, MPV 8.1, Immature Gran % (Auto) 0.200, Neut % (Auto) 58.9, Lymph % (Auto) 29.4, [place] % (Auto) 9.6, Eos % (Auto) 0.7, Baso % (Auto) 1.2 H, Absolute Neuts (auto) 3.6, Absolute Lymphs (auto) 1.78, Nucleated RBC % 0.7, Diff Path Review Reviewed 03/17/20 14:30: PT 15.8 H, INR 1.3 03/17/20 14:30: Blood Type A NEGATIVE, Antibody Screen NEGATIVE, Crossmatch See Detail 03/17/20 14:30: Total Bilirubin 0.40, Direct Bilirubin 0.11, AST 12 L, ALT 19, Alkaline Phosphatase 55, Total Protein 7.8, Albumin 4.3, Globulin 3.5 03/17/20 14:30: Crossmatch See Detail 03/17/20 22:17: Hgb 5.9 L*, Hct 20.6 L 03/18/20 05:58: WBC 6.2, RBC 3.56 L, Hgb 7.4 L, Hct 24.0 L, MCV 67.4 L D, MCH 20.8 L, MCHC 30.8 L D, RDW Std Deviation 59.1 H, RDW Coeff of Laisha 26.5 H, Plt Count 456 H, MPV 8.3, Immature Gran % (Auto) 0.300, Neut % (Auto) 54.8, Lymph % (Auto) 29.5, [place] % (Auto) 12.3 H, Eos % (Auto) 2.1, Baso % (Auto) 1.0, Absolute Neuts (auto) 3.4, Absolute Lymphs (auto) 1.82, Nucleated RBC % 0.6, Differential Comment SCANNED, Hypochromasia 2+, Anisocytosis 1+, Microcytosis 1+, Tear Drop Cells RARE, Ovalocytes RARE 03/18/20 05:58: Sodium 138, Potassium 3.9, Chloride 107, Carbon Dioxide 26.0, Anion Gap 5, BUN 16, Creatinine 1.10, Estim Creat Clear Calc 79.45, Est GFR (MDRD) Af Amer 92, Est GFR (MDRD) Non-Af 76, BUN/Creatinine Ratio 14.5, Glucose 83, Calcium 8.5, Total Bilirubin 1.50 H, AST 12 L, ALT 19, Alkaline Phosphatase 51, Total Protein 7.0, Albumin 3.7, Globulin 3.3, Albumin/Globulin Ratio 1.1 Current Medications Acetaminophen (Acetaminophen 325 Mg Tablet) 650 mg PO Q6H PRN PRN PRN Reason: Pain Score 1-10/Temp > 100.7 F Pantoprazole Sodium 40 mg/ (Sodium Chloride) 110 mls @ 330 mls/hr IV Q12 LUZ ELENA Last Infusion: 03/18/20 10:56 Dose: Infused Documented by: Sodium Chloride () 250 mls @ 15 mls/hr IV .[id number] PRN PRN Reason: Saline Flush Last Infusion: 03/18/20 09:54 Dose: Infused Documented by: Sodium Chloride () 250 mls @ 15 mls/hr IV .[id number] PRN PRN Reason: Additional IVPB Infusion Ondansetron HCl (Ondansetron 4 Mg/2 Ml Vial) 4 mg IV Q8H PRN PRN PRN Reason: NAUSEA/VOMITING Polyethylene Glycol (Polyethylene Glycol 3350 17 Gm Packet) 17 gm PO DAILY LZU ELENA Last Admin: 03/18/20 09:54 Dose: 17 gm Documented by: Polyethylene Glycol (Polyethylene Glycol 3350 Bowel Prep) 0 bottle PO DAILY@1600 ONE Stop: 03/18/20 16:01 Sodium Chloride (0.9% Saline Lock 10 Ml Syringe) 10 - 40 ml IV UD PRN PRN Reason: SALINE FLUSH Last Admin: 03/18/20 06:01 Dose: 10 ml Documented by: STROKE Vital Signs/Narrative: Vital Signs Temp Pulse Resp BP BP Pulse Ox 03/18/20 14:00 82 14 94/66 100 03/18/20 13:00 88 12 133/88 H 96 03/18/20 12:00 97.4 F L 60 15 118/85 H 100 Medical Necessity - Tobacco Use Smoking Status: Never smoker Tobacco Use: Non-smoker Assessment/Plan All Active Problems Anemia (Acute) Lower GI bleed (Acute) Hemorrhoids with complication (Acute) 1. Acute on chronic blood loss anemia secondary to likely hemorrhoids/iron deficiency anemia -Iron studies showed a significant iron deficiency anemia as well as a severe microcytic anemia -He received 4 units of PRBCs, and corrected from 4 to 7.4 -Bowel prep today with plan for scoping tomorrow -After his scope, will transition him to p.o. iron -He takes naproxen as needed for headaches and muscle pains. He may need to discontinue this if it is found that he has some gastritis EGD tomorrow -Continue with PPI 2. History of hepatitis B -States that it was resolved and managed as an outpatient [place]: [facility] [place]: 56745 Subs Hosp L2
[2020-03-18] MEDS: Polyethylene Glycol 3350 BOWEL PREP PO (16:54)
--- NOTE | 2020-03-18 22:07 | NURSING ---
Report given to Nicolasa medical billing assistant at this time.
--- NOTE | 2020-03-18 23:03 | PCS.PANDOC ---
Addendum entered by Etta Spencer 03/19/20 07:42: incorrect date entered. patient admitted on 03/17/20. pandemic documentation would have started at that time. Original Note: PANDEMIC DOCUMENTATION INITIATED: Date: 03/10/2020 Time: 2299
[2020-03-19] VITALS (10 sets, daily range): BP systolic 106–133; BP diastolic 57–86; PULSE 50–70; RESP 16–18; TEMP 36.1–37.1; O2SAT 96–100; BMI 23.8
[2020-03-19 07:12] LABS: Absolute Lymphocyte Count 2.14 X10^3/uL (0.83-4.51); Absolute Neutrophil Count 5.3 X10^3/uL (2.0-7.7); Basophil# 0.06 X10^3/uL; Basophil% 0.7 % (0-1); Eosinophils% 2.3 % (0-5); Hematocrit 24.9 % (40-54); Hemoglobin 7.4 g/dL (13.0-16.5); Lymphocyte # 2.14 X10^3/ul (4.0); Lymphocyte % 24.9 % (19-41); Mean Corp Hgb Conc 29.7 g/dL (32-36); Mean Corpuscular Hgb 20.2 pg (27.0-32.0); Mean Platelet Vol. 8.3 fl (6.2-12.0); Monocyte# 0.88 X10^3/uL; Monocyte% 10.3 % (0-10); NRBC Flagged by Analyzer 0.5 % (0-5); Neutrophil # 5.28 X10^3/uL (2.7-7.7); Neutrophil % 61.6 % (47-70); POSITIVE MORPHOLOGY YES; Platelet Count 464 K/mm3 (150-450); RBC Distribution Width CV 26.7 % (11.6-14.6); Red Blood Count 3.66 M/mm3 (4.6-6.2); White Blood Count 8.6 K/mm3 (4.4-11.0)
[2020-03-19 07:30] LABS: Differential Indicated SCAN CRITERIA MET
[2020-03-19 08:12] LABS: Anisocytosis 1+
[2020-03-19] MEDS: 0.9% Saline Lock 10 ML Syringe IV (09:29)
[2020-03-19] MEDS: Lactated Ringers 1,000 ML 100 ML IV (10:30)
--- NOTE | 2020-03-19 11:12 | OP.EGD_ITS ---
Patient Name: Dilip Srinivasan Procedure Date: 03/19/2020 10:44 AM Date of : 1970 Age: 49 Procedure: Upper GI endoscopy Indications: Acute post hemorrhagic anemia, Recent gastrointestinal bleeding Providers: Rick Ricks MD Medicines: See the Anesthesia note for documentation of the administered medications Patient Profile: This is a 49 year old male. Refer to note in patient chart for documentation of history and physical. Complications: No immediate complications. Procedure: Pre-Anesthesia Assessment: - Prior to the procedure, a History and Physical was performed, and patient medications and allergies were reviewed. The patient's tolerance of previous anesthesia was also reviewed. The risks and benefits of the procedure and the sedation options and risks were discussed with the patient. All questions were answered, and informed consent was obtained. Prior Anticoagulants: The patient has taken no previous anticoagulant or antiplatelet agents. ASA Grade Assessment: II - A patient with mild systemic disease. After reviewing the risks and benefits, the patient was deemed in satisfactory condition to undergo the procedure. After obtaining informed consent, the endoscope was passed under direct vision. Throughout the procedure, the patient's blood pressure, pulse, and oxygen saturations were monitored continuously. The gastroscope was introduced through the mouth, and advanced to the second part of duodenum. The upper GI endoscopy was accomplished without difficulty. The patient tolerated the procedure well. Scope In: 10:52:10 AM Scope Out: 10:54:35 AM Total Procedure Duration Time 0 hours 2 minutes 25 seconds Findings: The examined esophagus was normal. The entire examined stomach was normal. No biopsies or other specimens were collected for this exam. The examined duodenum was normal. No biopsies or other specimens were collected for this exam. Impression: - Normal esophagus. - Normal stomach. No specimens collected. - Normal examined duodenum. No specimens collected. Recommendation: - Discharge patient to home. - Resume previous diet. - Continue present medications. - Repeat upper endoscopy is not recommended for surveillance. - Return to primary care physician in 1 week. Procedure Code(s): --- Professional --- 81144, Esophagogastroduodenoscopy, flexible, transoral; diagnostic, including collection of specimen(s) by brushing or washing, when performed (separate procedure) Diagnosis Code(s): --- Professional --- D62, Acute posthemorrhagic anemia K92.2, Gastrointestinal hemorrhage, unspecified CPT copyright 2017 [employer]. All rights reserved. The codes documented in this report are preliminary and upon economic development manager review may be revised to meet current compliance requirements. MD Rick Flores MD 03/19/2020 11:12:06 AM This report has been signed electronically. Number of Addenda: 0 Note Initiated On: 03/19/2020 10:44 AM
--- NOTE | 2020-03-19 11:12 | OP.CCLET_ITS ---
03/19/2020 No Primary Care Physician Re : Upper GI endoscopy procedure for Dilip Srinivasan Dear Care Physician This procedure was performed on March. My impressions and recommendations are as follows: Impressions : - Normal esophagus. - Normal stomach. No specimens collected. - Normal examined duodenum. No specimens collected. Recommendations : - Discharge patient to home. - Resume previous diet. - Continue present medications. - Repeat upper endoscopy is not recommended for surveillance. - Return to primary care physician in 1 week. My findings are described in the full procedure note, which is enclosed. If I can be of further assistance, please feel free to contact me at Doctor phone number(s): , Fax: [phone], Work: . Sincerely, MD Rick Flores MD 03/19/2020 11:12:06 AM This report has been signed electronically.
--- NOTE | 2020-03-19 11:17 | OP.CCLET_ITS ---
03/19/2020 No Primary Care Physician Re : Colonoscopy procedure for Dilip Srinivasan Dear Care Physician This procedure was performed on March. My impressions and recommendations are as follows: Impressions : - Non-bleeding non-prolapsed internal hemorrhoids. - The examination was otherwise normal. - No specimens collected. Recommendations : - Return patient to hospital mix for ongoing care. - Resume previous diet. - Continue present medications. - Use hydrocortisone suppository 25 mg 2 per rectum once a day for 1 month. - Repeat colonoscopy in 10 years for screening purposes. My findings are described in the full procedure note, which is enclosed. If I can be of further assistance, please feel free to contact me at Doctor phone number(s): , Fax: [phone], Work: . Sincerely, MD Rick Flores MD 03/19/2020 11:16:46 AM This report has been signed electronically.
--- NOTE | 2020-03-19 11:17 | OP.COLON_ITS ---
Patient Name: Dilip Srinivasan Procedure Date: 03/19/2020 10:56 AM Date of : 1970 Age: 49 Procedure: Colonoscopy Indications: Rectal bleeding, Acute post hemorrhagic anemia Providers: Rick Ricks MD Medicines: See the Anesthesia note for documentation of the administered medications Patient Profile: This is a 49 year old male. Refer to note in patient chart for documentation of history and physical. Last Colonoscopy: none. The patient's first colonoscopy is today. Complications: No immediate complications. Procedure: Pre-Anesthesia Assessment: - Prior to the procedure, a History and Physical was performed, and patient medications and allergies were reviewed. The patient's tolerance of previous anesthesia was also reviewed. The risks and benefits of the procedure and the sedation options and risks were discussed with the patient. All questions were answered, and informed consent was obtained. Prior Anticoagulants: The patient has taken no previous anticoagulant or antiplatelet agents. ASA Grade Assessment: II - A patient with mild systemic disease. After reviewing the risks and benefits, the patient was deemed in satisfactory condition to undergo the procedure. After I obtained informed consent, the scope was passed under direct vision. Throughout the procedure, the patient's blood pressure, pulse, and oxygen saturations were monitored continuously. The colonoscope was introduced through the anus and advanced to the cecum, identified by appendiceal orifice and ileocecal valve. The colonoscopy was performed without difficulty. The patient tolerated the procedure well. The quality of the bowel preparation was good. Scope In: 10:57:00 AM Scope Withdrawal Time 0 hours 6 minutes 13 seconds Scope Out: 11:07:41 AM Total Procedure Duration Time 0 hours 10 minutes 41 seconds Findings: Non-bleeding non-prolapsed internal hemorrhoids were found during retroflexion. The hemorrhoids were moderate and medium-sized. Patient may need a PPH if supp note working. He has cercumfrential dx. The exam was otherwise without abnormality. Impression: - Non-bleeding non-prolapsed internal hemorrhoids. - The examination was otherwise normal. - No specimens collected. Recommendation: - Return patient to hospital mix for ongoing care. - Resume previous diet. - Continue present medications. - Use hydrocortisone suppository 25 mg 2 per rectum once a day for 1 month. - Repeat colonoscopy in 10 years for screening purposes. Procedure Code(s): --- Professional --- 90678, Colonoscopy, flexible; diagnostic, including collection of specimen(s) by brushing or washing, when performed (separate procedure) Diagnosis Code(s): --- Professional --- K64.8, Other hemorrhoids K62.5, Hemorrhage of anus and rectum D62, Acute posthemorrhagic anemia CPT copyright 2017 [employer]. All rights reserved. The codes documented in this report are preliminary and upon medical billing coder review may be revised to meet current compliance requirements. MD Rick Flores MD 03/19/2020 11:16:46 AM This report has been signed electronically. Number of Addenda: 0 Note Initiated On: 03/19/2020 10:56 AM
--- NOTE | 2020-03-19 11:34 | PN_ITS ---
Progress Note Colonoscopy with circumferential hemorrhoidal disease, otherwise unremarkable. Upper scope unremarkable. Recommend hydrocortisone suppositories for 1 month. Patient will need a follow-up with Dr. Armstrong for a PPH hemorrhoid procedure in if bleeding continues. Will send script for suppositories to [facility]. STROKE Vital Signs/Narrative: Vital Signs Temp Pulse Resp BP Pulse Ox 03/19/20 11:30 97.5 F L 53 L 16 119/71 100 03/19/20 11:26 70 18 108/68 100 03/19/20 11:20 59 L 16 112/66 98 03/19/20 11:15 97.0 F L 57 L 16 112/75 97 03/19/20 09:30 98.6 F 58 L 18 127/74 H 97
--- NOTE | 2020-03-19 14:30 | DCINST_ITS ---
- Discharge Diagnoses Current Active Problems: Current Active and Chronic Problems Anemia (Acute) Lower GI bleed (Acute) Hemorrhoids with complication (Acute) Iron deficiency anemia due to chronic blood loss (Chronic) You will use the following diet at home:: Regular Your food should be the consistency of: Regular Your liquids should be the consistency of: Regular/Thin Discharge Activity: Return to Normal Activity Call your doctor if you observe: Fever of 101 or Higher, Shortness of breath, Dizziness, Fainting spells, Swelling in the ankles, Chest pain, Increased palpitations (irregular heartbeat) Additional Instructions: Obtain a CBC by your primary care physician to monitor your hemoglobin and anemia. Allergies/Adverse Reactions: Allergies No Known Allergies Allergy (Verified 03/17/20 14:22) Medications to take at Discharge Acetaminophen [Tylenol Extra Strength] 1,000 mg PO DAILY PRN 03/17/20 Docusate Sodium [Colace] 100 mg PO DAILY #60 cap 03/19/20 Ferrous Sulfate 325 mg PO BID #60 tab 03/19/20 Hydrocortisone 2.5% Crm [Hytone] 1 applic RECTAL BID #60 supp.rect 03/19/20 The following prescriptions were given: Docusate Sodium [Colace] 100 mg PO DAILY #60 cap Transmission Status: Pending to [facility] Ferrous Sulfate 325 mg PO BID #60 tab Transmission Status: Pending to [facility] Hydrocortisone 2.5% Crm [Hytone] 1 applic RECTAL BID #60 supp.rect Transmission Status: Received by [facility] Primary Care Physician: Care Physician,No Primary [Primary Care Provider] - Please follow up with your Primary Care Physician in: 3-5 days Test Results: Test results from this visit will be discussed in further detail at your follow- up appointment, if applicable.
--- NOTE | 2020-03-19 14:33 | PCM.DC.SUM ---
Discharge Date and Diagnosis - Problem List Patient Problems: Active and Suspected Problems Anemia (Acute) Lower GI bleed (Acute) Hemorrhoids with complication (Acute) Date of Admission: 03/17/20 Date of Discharge: 03/19/20 - Primary Discharge Diagnosis Acute Problems: Active Problems Anemia (Acute) Lower GI bleed (Acute) Hemorrhoids with complication (Acute) - Secondary Discharge Diagnosis Chronic Problems: Chronic Problems Iron deficiency anemia due to chronic blood loss (Chronic) Hospital Course and Treatment Consults: ICU General Surgery Operations: None Procedures: Colonoscopy, EGD Summary of Care Provided: Per HPI:The patient is a 49 year old M who presents to emergency room due to shortness of breath, lightheadedness and rectal bleeding. Patient states he has had hemorrhoids forever. He states his previously he had periods of time where he would have rectal bleeding which would then resolve on their own. Over the past few months he states he has had ongoing bleeding from his hemorrhoids. He states during a bowel movement he has squirting of blood. He has not seen a doctor for this or had prior colonoscopy. Over the past few weeks he reports shortness of breath and lightheadedness as well as easily fatigued. He called his brother who is a physician currently practicing in [facility] who told him to get lab work. Patient went to a laboratory to have his blood work completed and when he shared results with his brother, his brother told him to go to the emergency room immediately. He denies chest pain, denies syncope. He has a past medical history of hepatitis B which he states has resolved. Hospital Course: 1. Acute on chronic blood loss anemia secondary to likely hemorrhoids/iron deficiency anemia -Iron studies showed a significant iron deficiency anemia as well as a severe microcytic anemia -He received 4 units of PRBCs, and corrected from 4 to 7.4 -His hemoglobin remained stable on the day of discharge -EGD was unremarkable, and his colonoscopy demonstrated circumferential moderate nonbleeding hemorrhoids that were internal -After his scope, will transition him to p.o. iron -He takes naproxen as needed for headaches and muscle pains. I recommend that he discontinue his naproxen especially if he continues to have bleeding hemorrhoids -I discussed with him the plan for discharge today he expressed understanding the risks and benefits of going home and would like to go home. I discussed with him that I want to place him on p.o. iron and therefore I also added Colace to try to soften of his stool in the hopes that he would not aggravate his hemorrhoids. General surgery also recommended that he apply hydrocortisone cream to his hemorrhoids for a month and if after that month he continues to have bleeding issues and he should follow-up with Dr. Armstrong for surgical intervention. Also recommended he follow-up with a primary care physician to obtain a CBC to monitor his hemoglobin given how severe his anemia was. 2. History of hepatitis B -States that it was resolved and managed as an outpatient Patient Problems: Active and Suspected Problems Anemia (Acute) Lower GI bleed (Acute) Hemorrhoids with complication (Acute) - Physical Exam Vitals/I&O's: Vital Signs Temp Pulse Resp BP Pulse Ox 98.0 F 50 L 16 133/86 H 100 03/19/20 11:55 03/19/20 11:55 03/19/20 11:55 03/19/20 11:55 03/19/20 11:55 Oxygen Delivery Method Room Air Weight: 156 lb 11.979 oz Body Mass Index (BMI) 23.8 Intake and Output for Last 24 Hours 03/17/20 03/18/20 03/19/20 23:59 23:59 23:59 Intake Total 170.25 / 170.25 950 / 950 910 / 910 Output Total 2200 / 2200 575 / 575 Balance -9.75 / -2028.75 375 / 375 910 / 910 General: Alert, Oriented x3, Cooperative, No apparent distress, HEENT: Atraumatic, PERRLA, EOMI, Normocephalic Oral: Moist Mucosa Neck: Supple, No JVD Lungs: Clear to auscultation, Normal air movement, No rhonchi, No wheeze, No rales Cardiovascular: Regular rate, Regular Rhythm, Normal S1, Normal S2, No murmurs Abdomen: Soft, Non Tender, Non-Distended, No Hepato-splenomegaly Extremities: No edema, Capillary Refill Less than 3 Seconds Skin: No rashes, No breakdown Neurological: Neuro grossly intact, Sensory exam intact to light touch and pain Psych/Mental Status: Normal Affect, Appropriate Microbiology Past 72 Hours 03/17/20 19:20 Mucosa - Nose SARS-CoV-2 Antigen (Rapid) - Final Laboratory Results 03/19/20 06:56: WBC 8.6, RBC 3.66 L, Hgb 7.4 L, Hct 24.9 L, MCV 68.0 L, MCH 20.2 L, MCHC 29.7 L, RDW Std Deviation 61.0 H, RDW Coeff of Laisha 26.7 H, Plt Count 464 H, MPV 8.3, Immature Gran % (Auto) 0.200, Neut % (Auto) 61.6, Lymph % (Auto) 24.9, [place] % (Auto) 10.3 H, Eos % (Auto) 2.3, Baso % (Auto) 0.7, Absolute Neuts (auto) 5.3, Absolute Lymphs (auto) 2.14, Nucleated RBC % 0.5, Anisocytosis 1+ Current Medications Acetaminophen (Acetaminophen 325 Mg Tablet) 650 mg PO Q6H PRN PRN PRN Reason: Pain Score 1-10/Temp > 100.7 F Pantoprazole Sodium 40 mg/ (Sodium Chloride) 110 mls @ 330 mls/hr IV Q12 [facility] Last Infusion: 03/19/20 09:49 Dose: Infused Documented by: Sodium Chloride () 250 mls @ 15 mls/hr IV .[id number] PRN PRN Reason: Saline Flush Last Infusion: 03/18/20 09:54 Dose: Infused Documented by: Sodium Chloride () 250 mls @ 15 mls/hr IV .[id number] PRN PRN Reason: Additional IVPB Infusion Lactated Ringer's () 1,000 mls @ 100 mls/hr IV .Q10H [facility] Last Infusion: 03/19/20 11:29 Dose: Infused Documented by: Ondansetron HCl (Ondansetron 4 Mg/2 Ml Vial) 4 mg IV Q8H PRN PRN PRN Reason: NAUSEA/VOMITING Polyethylene Glycol (Polyethylene Glycol 3350 17 Gm Packet) 17 gm PO DAILY [facility] Last Admin: 03/19/20 09:11 Dose: Not Given Documented by: Sodium Chloride (0.9% Saline Lock 10 Ml Syringe) 10 - 40 ml IV UD PRN PRN Reason: SALINE FLUSH Last Admin: 03/19/20 09:29 Dose: 10 ml Documented by: Discharge Activity: Return to Normal Activity Call your doctor if you observe: Fever of 101 or Higher, Shortness of breath, Dizziness, Fainting spells, Swelling in the ankles, Chest pain, Increased palpitations (irregular heartbeat) Home Medications: Medications to take at Discharge Acetaminophen [Tylenol Extra Strength] 1,000 mg PO DAILY PRN 03/17/20 Docusate Sodium [Colace] 100 mg PO DAILY #60 cap 03/19/20 Ferrous Sulfate 325 mg PO BID #60 tab 03/19/20 Hydrocortisone 2.5% Crm [Hytone] 1 applic RECTAL BID #60 supp.rect 03/19/20 Following Prescriptions Were Given to Patient: Docusate Sodium [Colace] 100 mg PO DAILY #60 cap Transmission Status: Pending to [facility] Ferrous Sulfate 325 mg PO BID #60 tab Transmission Status: Pending to [facility] Hydrocortisone 2.5% Crm [Hytone] 1 applic RECTAL BID #60 supp.rect Transmission Status: Received by [facility] Primary Care Physician: Care Physician,No Primary [Primary Care Provider] - Please follow up with your Primary Care Physician in: 3-5 days Disposition: Home Minutes spent on discharge:: 35 Patient Condition:: Stable Medical Necessity - Tobacco Use Smoking Status: Never smoker Tobacco Use: Non-smoker Meaningful Use Info Meaningful Use Diagnoses (Choose all that apply): None applicable Inpatient E&M: 87240 Disch Hosp
== END 2020-03-19 17:20 | disposition home or self-care (01) | DRG 394 ==
LOC: ED 15:56 → ICU 16:59 → MS3 03-18 22:56
PROVIDERS: Nurse Practitioner Family; Surgery; Admitting Provider Internal Medicine; Emergency Provider Emergency Medicine; Visit Provider Family Medicine
PROC: 0DJD8ZZ Inspection of Lower Intestinal Tract, Via Natural or Artificial Opening Endoscopic (ICD-10-PCS; CPT 45378; principal; 2020-03-19 10:55)
DX: K64.1 Second degree hemorrhoids (principal); K62.5 Hemorrhage of anus and rectum; D62 Acute posthemorrhagic anemia; Z86.19 Personal history of other infectious and parasitic diseases
CPT/HCPCS: 36415; 80048; 80053; 80076; 83540; 83550; 85014; 85018; 85025; 85610; 85730; 86850; 86900; 86901; 86920; 86922; 87426; 97802; 99251; 99284; J7030; J7050; J7120; P9016; A4216; G0463; J1940; J2405